=== PATIENT | male | born 2000 | race Caucasian/White ===

== ENCOUNTER 2019-10-03 08:58 | Outpatient (CLI) | payer BC, SELFPAY ==
--- NOTE | 2019-10-03 | US_ITS ---
WS: [id number] Complete ABDOMINAL ULTRASOUND HISTORY: ELEVATED HEMOGLOBIN COMPARISON: CT 06/13/2012. Liver: 16.1 cm in length. Heterogeneous liver with poor penetration. No mass or bile duct dilatation. Gallbladder: Normally distended with no gallstones, wall thickening or pericholecystic fluid. Gallbladder wall thickness: 1.6 mm. Pancreas: Poorly visualized. CBD: 2.2 mm. Right kidney: 11.8 cm x 4.8 cm x 4.8 cm. No mass, cortical thickening or hydronephrosis. Left kidney: 11.4 cm x 5.3 cm x 4.5 cm. No mass, cortical thickening or hydronephrosis. Spleen: Normal size and echogenicity. Abdominal aorta and IVC are within normal limits. No ascites. US/US abdomen complete* [id number] IMPRESSION: 1. Normal gallbladder. 2. Mild hepatic steatosis.
== END 2019-10-03 08:59 | disposition home or self-care (01) ==
LOC: RADOUTREAD 10-04 07:38
PROVIDERS: Family Provider Family Medicine; Visit Provider Family Medicine
DX: D58.2 Other hemoglobinopathies (principal); K76.0 Fatty (change of) liver, not elsewhere classified

== ENCOUNTER 2021-07-31 03:12 | Emergency (ER) | payer BC, SELFPAY ==
[2021-07-31 03:32] VITALS: BP 125/61; PULSE 66; RESP 18; TEMP 37.1; O2SAT 99; BMI 31.3
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
--- NOTE | 2021-07-31 03:35 | ECG_ITS ---
[facility] Test Date: 2021-07-31 Pat Name: Casey Martin Department: Room: Gender: Male Clinical Resource Coordinator: : 2000 Requested By: Ricki Cruz Order Number: [id number] Clarisse MD: Lance Elizabeth M.D. Measurements Intervals [place] Rate: 60 P: 138 MO: 182 QRS: 131 QRSD: 122 T: 109 QT: 382 QTc: 383 Interpretive Statements SINUS RHYTHM WITH SINUS ARRHYTHMIA POSSIBLE LEFT ATRIAL ENLARGEMENT [-0.1mV P-WAVE IN V1/V2] LEFT POSTERIOR FASCICULAR BLOCK [QRS AXIS > 109, INFERIOR Q] MODERATE ST DEPRESSION [0.05+ mV ST DEPRESSION] No previous ECG available for comparison Electronically Signed On 07-31-2021 22:39:59 [employer] SALESPERSON by Lance Elizabeth M.D. [id number]
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
[2021-07-31 04:36] VITALS: BP 129/65; PULSE 68; RESP 18; O2SAT 97
== END 2021-07-31 04:35 | disposition home or self-care (01) ==
PROVIDERS: Emergency Provider Emergency Medicine
DX: S09.8XXA Other specified injuries of head, initial encounter (principal); R55 Syncope and collapse; W20.8XXA Other cause of strike by thrown, projected or falling object, initial encounter
CPT/HCPCS: 70450; 72125; 93005; 99283

== ENCOUNTER 2023-05-21 13:47 | Outpatient (CLI) | payer BC, SELFPAY ==
--- NOTE | 2023-05-21 14:06 | US_ITS ---
WS: [id number] TESTICULAR ULTRASOUND HISTORY: TESTICLE PAIN COMPARISON: None available. TECHNIQUE: Real-time and color Doppler imaging or utilized to perform a testicular ultrasound. Right testicle: 4.1 cm x 2.7 cm x 2.2 cm. Normal size and echogenicity. No mass or torsion. Normal color Doppler is present throughout. Systolic and diastolic velocities are both present. No significant hydrocele. Right epididymis: Prominent epididymis with cystic changes throughout. No significant varicocele at t his time. Increased vascularity in the RIGHT epididymis. Left testicle: 4.3 cm x 2.1 cm x 1.8 cm. Normal size and echogenicity. No mass or torsion. Normal color Doppler is present throughout. Systolic and diastolic velocities are both present. No significant hydrocele. Left epididymis: Prominent epididymis. No increased vascularity. No varicocele. IMPRESSION: 1. No testicular mass or torsion. 2. Increased vascularity in the RIGHT epididymis consistent with mild acute epididymitis. 3. Prominent bilateral pampiniform plexuses but no evidence for varicoceles at this time.
== END 2023-05-21 13:48 | disposition home or self-care (01) ==
PROVIDERS: PCP Nurse Practitioner Family; Visit Provider Nurse Practitioner Family
DX: N50.819 Testicular pain, unspecified (principal); R93.811 Abnormal radiologic findings on diagnostic imaging of right testicle
CPT/HCPCS: 76870

== ENCOUNTER → 2023-12-26 17:18 | Outpatient (BNVA) | payer OTHER, SELFPAY | PROVIDERS: PCP Nurse Practitioner Family; Visit Provider Emergency Medicine | DX: R09.81 Nasal congestion (principal) | CPT/HCPCS: 87400 ==